=== PATIENT | male | born 1960 | race Caucasian/White ===

== ENCOUNTER 2024-12-03 08:38 | Outpatient (AMB) | payer OTHER, MEDICARE, SELFPAY ==
--- OUTSIDE RECORDS SUMMARY | 2024-12-03 08:42 | XMS_ITS | Clinical Summary ---
Author Organization [address] Address [address] [place] [phone] Phone Care Team Providers Care Regenerator Operator Name Role Phone Jazzmine Waters MD Primary Care Provider [phone] Allergies No known active allergies Medications triamcinolone (KENALOG) 0.1 % cream Apply BID 11/04/2023 Active lisinopriL (PRINIVIL,ZESTRI L) 20 mg tablet Take 1 tablet (20 mg total) by mouth 1 (one) time each day. 90 tablet 1 09/10/2024 Active Active Problems Problem Noted Date Diagnosed Date Ventral hernia without obstruction or gangrene 0 02/28/2023 Obesity (BMI 30-39.9) 08/13/2018 Positive hepatitis C antibody test 09/23/2017 Overview (05/25/2024): Negative viral load Erectile dysfunction 09/15/2017 History of cocaine abuse (CMS/HCC V24, CMS/HCC V 28) 09/15/2017 Hyperlipidemia 06/30/2015 Hypertension 09/16/2012 Encounters Date Type Department Care Team Description 11/16/2024 1:27 PM EDT - 11/16/2024 11:59 PM EDT Hospital Encounter Radiology Department - [address] [phone] Other spondylosis, lumbar region; Radiculopathy, lumbar region Discharge Disposition: Home or Self Care from Last 3 Months Immunizations Name Administration Dates Next Due Influenza Quadravalent, MDCK , 0.5ml, preservative free (Flucelvax) 6mo and older 08/05/2023 Tdap Tetanus diptheria acell ular pertussis (Boostrix; Adacel) 7yo and older 02/28/2023,07/14/2012 Surgical History Surgery Date Site/Laterality Comments COLONOSCOPY 12/22/12 PROCEDURE: HISTORICAL COLONOSCOPY; COMMENT: tics and hemorrhoids; repeat in ten yrs TONSILLECTOMY PROCEDURE: HISTORICAL TONSILLECTOMY Medical History Medical History Date Comments Hypertension DX:Hypertension Family History Medical History Relation Name Comments Other: suicide at age 42 Father Other: tia Sister htn, high dilan sterol Relation Name Status Comments Father Mother Alive Sister Alive Social History Tobacco Use Types Packs/Day Years Used Date Smoking Tobacco: Former Smokeless Tobacco: Never Tobacco Cessation:Counseling Given: Not Answered Alcohol Use Standard Drinks/Week Comments Not Asked 0 (1 standard drink = 0.6 oz pur e alcohol) Sex and Gender Information Value Date Recorded Sex Assigned at Not on file Legal Sex Male 12:56 AM EST Gender Identity Not on file Sexual Orientation Not on file Obstetrics History Last Filed Vital Signs Vital Sign Reading Time Taken Comments Blood Pressure 138/88 07/15/2024 4:04 PM EST Pulse 90 07/15/2024 4:04 PM EST Temperature 36.1 ??C (96.9 ??F) 07/15/2024 4:04 PM ES T Respiratory Rate 14 07/15/2024 4:04 PM EST Oxygen Saturation - - Inhaled Oxygen Concentration - - Weight 109 kg (241 lb) 07/15/2024 4:04 PM EST Height 172.7 cm (5' 8 ) 07/15/2024 4:04 PM EST Body Mass Index 36.64 07/15/2024 4:04 PM EST Plan of Treatment Upcoming Encounters Date Type Department Care Team (Late st Contact Info) Description 12/14/2024 9:30 AM EDT Office Visit Adult Medicine [address] [phone] Jazzmine Waters MD [address] [place] [address] Health Maintenance Due Date Last Done Comments Pneumococcal Vaccine: 50+ Years (1 of 1 - PCV) 12/07/2009 Zoster Vaccines (1 of 2) 12/07/2009 Depression Screening 09/24/2023 HIV Screening 09/24/2023 Social Influencers of Health Screening 09/24/2023 COVID-19 Vaccine ( season) 2024 08/04/2022, 07/30/2021, 12/10/2020, Additional history exists Hypertension/CHF/CAD Annual BMP Blood Test 07/28/2024 07/28/2023 Influenza Vaccine (Season Ended) 2025 08/05/2023 Cholesterol Screening (Lipid Panel) 06/15/2029 06/15/2024, 12/15/2023 DTaP,Tdap,and Td Vaccines (3 - Td or Tdap) 02/28/2033 02/28/2023, 07/14/2012 Colorectal Cancer Screening: Colonoscopy 12/21/2033 12/22/2023 RSV Immunization Adult Patients (1 - 1-dose 75+ series) 12/07/2034 Hepatitis C Screening Completed 09/24/2017 HIB Vaccines Aged Out No longer eligi ble based on patient's age to complete this topic HPV Vaccines Aged Out No longer eligi ble based on patient's age to complete this topic Hepatitis A Vaccines Aged Out No long er eligible based on patient's age to complete this topic Hepatitis B Vaccines Aged Out No long er eligible based on patient's age to complete this topic IPV Vaccines Aged Out No longer eligi ble based on patient's age to complete this topic MMR Vaccines Aged Out No longer eligi ble based on patient's age to complete this topic Meningococcal ACWY Vaccine Aged Out N o longer eligible based on patient's age to complete this topic Meningococcal B Vaccine Aged Out No l onger eligible based on patient's age to complete this topic Pneumococcal Vaccine: Pediatrics (0 to 5 Years) and At-Risk Patients (6 to 64 Years) Aged Out No longer eligible based on patient's age to complete this topic RSV Immunization Patients Under 20 months Aged Out No longer eligible based on patient's age to complete this topic Varicella Vaccines Aged Out No longer eligible based on patient's age to complete this topic Procedures Procedure Name Priority Date/Time Associated Diagnosis Comments MR LUMBAR SPINE WO CONTRAST Routine 11/16/2024 2:14 PM EDT Other spondylosis, lumbar region Radiculopathy, lumbar region COLONOSCOPY Routine 12/22/2023 LIPID PANEL Routine 12/15/2023 ANNUAL BMP BLOOD TEST Routine 07/28/2023 HEPATITIS C SCREENING Routine 09/24/2017 from Last 3 Months or Most Recently Relevant to Health Maintenance Results * MR Lumbar Spine wo Contrast (11/16/2024 2:14 PM EDT) Anatomical Region Laterality Modality L-spine, Spine Magnetic Resonan ce 11/16/2024 7:00 PM EDT Narrative 11/16/2024 7:13 PM EDT MRI of the lumbosacral spine without intravenous contrast. History low back pain. Examination was performed on 1.5 Gillian magnet. Labeling of the levels is according to the labeling on prior study from 02/26/2015 accounting for 4 nonribs bearing lumbar vertebra rudimentary S1-S2 disc . If surgical intervention is planned please pay close attention to the levels. Conus medullaris terminates at L1 level. Vertebral bodies are maintained in height. T12-L1 level is unremarkable. At L1-2 level there is mild bulging of the disc and mild hypertrophy of the facet joints. There is no spinal stenosis or nerve root compression. At L2-3 level there is diffuse bulging of the disc, hypertrophy of the facet joints. And some prominence of the posterior epidural fat contributing to mild spinal stenosis. There is clumping of the nerve roots. At L3-4 level disc is decreased in T2 signal. There is bulging of the discs, hypertrophy of the facet joints and prominence of the posterior epidural fat contributing to moderate/severe spinal stenosis. There is narrowing of the lateral recesses and L3 neural foramina. There is effacement of the L3 nerve roots. There is clumping of the nerve roots within the spinal canal. At L4 S1 level disc is decreased in height and T2 signal. There is diffuse bulging of the disc and bilateral lateral protrusion there is circumferential prominence of the epidural fat contributing to moderate/severe spinal stenosis. There is clumping of the nerve roots. There is stenosis of the lateral recesses and L4 nerve roots with compression of the L4 nerve roots more prominent on the left. Perivertebral soft tissues are unremarkable. When compared with previous examination, there is ??interval progression of the spinal stenosis at L3-4 and L4 S1 levels. Compression of the L4 nerve roots, left more than right. 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 Moderate to severe spinal stenosis at L3-4 level. Effacement of the L3 nerve roots. Moderate/severe spinal stenosis at L4 S1 level with compression of the L4 nerve roots, more prominent on the left. Clumping of the nerve roots within the spinal canal at multiple levels. Interval progression of the degenerative changes. -------- FINAL REPORT -------- Dictated By: Joi Galvan Dictated Date: 11/16/2024 19:00 ET Assigned Physician: Joi Galvan Reviewed and Electronically Signed By: Joi Galvan Signed Date: 11/16/2024 19:13 ET Workstation ID: [id number] Transcribed By: Self Edit Transcribed Date: 11/16/2024 19:00 ET Procedure Note Joi Galvan MD - 11/16/2024 MRI of the lumbosacral spine without intravenous contrast. History low back pain. Examination was performed on 1.5 Gillian magnet. Labeling of the levels isaccording to the labeling on prior study from 02/26/2015 accounting for 4nonribs bearing lumbar vertebra rudimentary S1-S2 disc . If surgicalintervention is planned please pay close attention to the levels. Conus medullaris terminates at L1 level. Vertebral bodies are maintainedin height. T12-L1 level is unremarkable. At L1-2 level there is mild bulging of thedisc and mild hypertrophy of the facet joints. There is no spinal stenosisor nerve root compression. At L2-3 level there is diffuse bulging of the disc, hypertrophy of thefacet joints. And some prominence of the posterior epidural fatcontributing to mild spinal stenosis. There is clumping of the nerveroots. At L3-4 level disc is decreased in T2 signal. There is bulging of thediscs, hypertrophy of the facet joints and prominence of the posteriorepidural fat contributing to moderate/severe spinal stenosis. There isnarrowing of the lateral recesses and L3 neural foramina. There iseffacement of the L3 nerve roots. There is clumping of the nerve rootswithin the spinal canal. At L4 S1 level disc is decreased in height and T2 signal. There is diffusebulging of the disc and bilateral lateral protrusion there iscircumferential prominence of the epidural fat contributing tomoderate/severe spinal stenosis. There is clumping of the nerve roots.There is stenosis of the lateral recesses and L4 nerve roots withcompression of the L4 nerve roots more prominent on the left. Perivertebral soft tissues are unremarkable. When compared with previous examination, there is interval progression ofthe spinal stenosis at L3-4 and L4 S1 levels. Compression of the L4 nerveroots, left more than right. CONCLUSIONS: Congenital variant of the lumbar spine with 4 nonrib bearinglumbar vertebra. Moderate to severe spinal stenosis at L3-4 level.Effacement of the L3 nerve roots. Moderate/severe spinal stenosis at L4 [id number] with compression of the L4 nerve roots, more prominent on theleft. Clumping of the nerve roots within the spinal canal at multiple levels.Interval progression of the degenerative changes. -------- FINAL REPORT -------- Dictated By: Joi Galvan Dictated Date: 11/16/2024 19:00 ET Assigned Physician: Joi Galvan Reviewed and Electronically Signed By: Joi Galvan Signed Date: 11/16/2024 19:13 ET Workstation ID: [id number] Transcribed By: Self Edit Transcribed Date: 11/16/2024 19:00 ET Orlin PRATT IMG MRI PROCEDURES Final Resul t * Colonoscopy (12/22/2023) Colonoscopy Normal, Abstracted Anatomical Region Laterality Modality Other Historical Provider HEALTH MAINTENANCE Final Result * (ABNORMAL) Lipid panel (12/15/2023) [facility] LDL/HDL Ratio 4 0 - 4 Triglycerides 84 0 - 150 mg/dL Cholesterol 227(A) 0 - 200 mg/dL HDL 64 >=40 mg/dL LDL Cholesterol 147(A) 0 - 100 mg/dL Blood Venous blood specimen / Unknown Historical Provider LAB BLOOD ORDERABLES Linda l Result * Annual BMP Blood Test (07/28/2023) [facility] Annual BMP Blood Test Abstracted [facility] Provider HEALTH MAINTENANCE Final Result * Hepatitis C Screening (09/24/2017) [facility] Hepatitis C Screening Abstracted [facility] Provider HEALTH MAINTENANCE Final Result from Last 3 Months or Most Recently Relevant to Health Maintenance Insurance [facility] Care Teams Regenerator Operator Relationship Specialty Start Date End Date Jazzmine Waters MD [address] [place] [address] PCP - General Internal Medicine 10/21/13
--- NOTE | 2024-12-03 09:05 | A.SPINEOV_ITS ---
Intake Visit Reasons: lower back pain and lumbar radiculitis Intake Note: Mr. Milan is here today c/o low back pain. MRI done @ [place] [place] (Brought disc). Pit Manager Required: No Allergies No Known Allergies Allergy (Unverified 05/11/20 14:42) Assessment & Plan Assessment & Plan (1) Lumbar stenosis: Code(s): M48.061 - Spinal stenosis, lumbar region without neurogenic claudication Category: Medical Plan Dear Orlin, Thank you for referring Mr Milan to our office today. This is a very nice 63-year-old gentleman who presents to the office today for evaluation of right sided leg pain and right-sided low back pain that he has had now for many years. It starts in the right side of his low back, radiates into his buttock, posterolateral thigh into his anterior lateral calf goes down to the top of his foot. He remembers when it originally started he was lifting a bucket of sheet rock mud and felt something pop. He ultimately underwent a series of conservative treatments and the pain became much more manageable. Over the years he has on and off had flare-ups but it has been manageable with things like physical therapy and cortisone injections. For whatever reason in the last year so, he has had a significant increase in the pain. He has actually had to stop working because of the physical nature of his job and having to go up on ladders he did not trust it. He has been so much of his day lying down. He also will have to lean to the left when he sitting to take the pressure off his back. He has been taking gabapentin at night to help with the pain and that seems to make things manageable, he will get 4-5 hours of sleep. He was taking [id number] medications like Tylenol and ibuprofen. He had to stop the ibuprofen because it was giving him significant gastritis. He comes in today with an MRI showing stenosis of the lumbar spine. PMH: He is very healthy gentleman, has history of hypertension, had subcutaneous cyst removed from his back but other than that no history of coronary disease, strokes, liver disease, kidney disease, blood clots, bleeding disorders, cancer, major abdominal surgery etc.. Social hx: Quit smoking many years ago, occasionally has a beer or marijuana. Medications: Lisinopril, gabapentin Allergies: None Physical exam: Awake alert oriented no acute distress, he is uncomfortable standing up walks with an antalgic gait, he has a 4-5 weakness of his right tibialis, no sensory or reflex changes. Imaging review: Lumbar MRI done at [place] in October of 2024 shows he has transitional anatomy. The 1st fully formed disc from the bottom looks like L5- S1 to me consistent with the vasculature seen just anterior to it. There is some degeneration at this disc and some left L5 foraminal stenosis. At the L4-5 level just above that the disc height is normal, but there is moderate to severe stenosis in the central canal at this level. There is some epidural lipomatosis further down in the spinal canal at the S1-S2 level. Impression: 63-year-old male presents for evaluation of a right-sided buttock pain going down into his posterolateral thigh, outer calf into the top of his foot consistent with a right L5 radiculopathy. He has responded in the past 2 injections but these have started to wear off. The pain at this point is with him all day, it is aggravated with standing walking and gets better when he lays down. He has been taking gabapentin at night to help sleep. He was on anti-i nflammatories for a long time but it caused him significant gastritis. The pain has escalated over the last year it has gotten to the point now where he has had to stop working. He does a very physical job working with [employer]. Her this point he is not sure what to do as he feels as though he has exhausted all of his nonsurgical treatments. He has done PT in the past as well with no meaning ful improvement. His MRI done at [place] shows that he has what looks like moderate to severe stenosis at L4-5 (transitional anatomy). I think this would be consistent with his symptoms and the weakness in his foot. I am going to talk with Dr. Patel but I think he would be a good candidate for right L4-5 decompression. I did briefly review the procedure, risks, benefits with the patient and his as well as recovery etc.. Once I have a final plan from Dr. Patel I will get back to the patient. Thank you for allowing us to care for your patient. The total time spent with this visit with this patient was 45 minutes reviewing history, physical exam, lumbar imaging review, and implementation of treatment plan or further diagnostic testing Norbert Patel MD,PhD [facility] Coding Level of Care Code New Pt Level 4 (34110) Diagnoses Lumbar stenosis M48.061
== END 2024-12-03 09:30 | disposition home or self-care (01) ==
PROVIDERS: PCP Internal Medicine; Referring Provider Physical Medicine & Rehabilitation; Visit Provider Physician Assistant
DX: M48.061 Spinal stenosis, lumbar region without neurogenic claudication (principal)
CPT/HCPCS: 99204

== ENCOUNTER → 2025-01-06 12:45 | Outpatient (BNV) | payer OTHER, MEDICARE, SELFPAY | PROVIDERS: PCP Internal Medicine; Visit Provider Internal Medicine Cardiovascular Disease | DX: Z01.810 Encounter for preprocedural cardiovascular examination (principal) | CPT/HCPCS: 93010 ==

== ENCOUNTER → 2025-01-20 07:49 | Day surgery (SDC) | payer OTHER, MEDICARE, SELFPAY ==
--- OUTSIDE RECORDS SUMMARY | 2024-12-27 15:04 | XMS_ITS | Clinical Summary ---
Author Organization [address] Address [address] [place] [phone] Phone Care Team Providers Care Windows Vmware Administrator Name Role Phone Jazzmine Waters MD Primary Care Provider [phone] Allergies No known active allergies Medications triamcinolone [...] PM EDT Hospital Encounter Radiology Department - [address] [phone] Other spondylosis, lumbar region; Radiculopathy, lumbar region [...] Care Team (Late st Contact Info) Description 02/16/2025 9:30 AM EDT Office Visit Adult Medicine [address] [phone] Jazzmine Waters MD [address] [place] [address] Health Maintenance Due Date Last Done Comments Pneumococcal Vaccine: 50+ Years (1 of 1 - PCV) 12/07/2009 Zoster Vaccines (1 of 2) 12/07/2009 Abdominal Aortic Aneurysm (AAA) Screen 09/24/2023 Depression Screening 09/24/2023 Medicare Annual Wellness Visit 09/24/2023 Social Influencers of Health Screening 09/24/2023 COVID-19 Vaccine ( season) 2024 08/04/2022, 07/30/2021, 12/10/2020, Additional history exists Hypertension/CHF/CAD Annual BMP Blood Test 07/28/2024 07/28/2023 Falls Risk Assessment 12/07/2024 Influenza Vaccine (Season Ended) 2025 08/05/2023 Cholesterol [...] Signed Date: 11/16/2024 19:13 ET Workstation ID: [id number] Transcribed By: Self Edit Transcribed Date: 11/16/2024 [...] nerve roots. Moderate/severe spinal stenosis at L4 [id number] with compression of the L4 nerve roots, more prominent on theleft. Clumping of the nerve roots within the spinal canal at multiple levels.Interval progression of the degenerative changes. -------- FINAL REPORT -------- Dictated By: Joi Galvan Dictated Date: 11/16/2024 19:00 ET Assigned Physician: Joi Galvan Reviewed and Electronically Signed By: Joi Galvan Signed Date: 11/16/2024 19:13 ET Workstation ID: [id number] Transcribed By: Self Edit Transcribed Date: 11/16/2024 19:00 ET Orlin PRATT IMJasmin MRI PROCEDURES Final Resul t * Colonoscopy (12/22/2023) Colonoscopy Normal, Abstracted Anatomical Region Laterality Modality Other Historical Provider HEALTH MAINTENANCE Final Result * (ABNORMAL) Lipid panel (12/15/2023) Pathologist [facility] LDL/HDL Ratio 4 0 - 4 Triglycerides 84 0 - 150 mg/dL Cholesterol 227(A) 0 - 200 mg/dL HDL 64 >=40 mg/dL LDL Cholesterol 147(A) 0 - 100 mg/dL Blood Venous blood specimen / Unknown Result [facility] Provider LAB BLOOD ORDERABLES Linda l Result * Annual BMP Blood Test (07/28/2023) Pathologist [facility] Annual BMP Blood Test Abstracted Result [facility] Provider HEALTH MAINTENANCE Final Result * Hepatitis C Screening (09/24/2017) Pathologist [facility] Hepatitis C Screening Abstracted [facility] Provider HEALTH MAINTENANCE Final Result from Last 3 Months or Most Recently Relevant to Health Maintenance Insurance [facility] [employer] Care Teams Windows Vmware Administrator Relationship Specialty Start Date End Date Jazzmine Waters MD [address] [place] [address] PCP - General Internal Medicine 10/21/13
--- NOTE | 2025-01-06 | ECG_ITS ---
Test Reason : PREOP Blood Pressure : */* mmHG Vent. Rate : 79 BPM Atrial Rate : 79 BPM P-R Int : 166 ms QRS Dur : 98 ms QT Int : 362 ms P-R-T Axes : 42 -12 32 degrees QTcB Int : 415 ms Sinus rhythm with marked sinus arrhythmia Otherwise normal ECG When compared with ECG of 24-Feb-2003 08:31, No significant change was found Referred By: Alona Almanza Electronically Signed By: MARINO BLAKE MD
[2025-01-06 12:00] VITALS: BP 203/100; PULSE 80; RESP 16; O2SAT 95; BMI 40.1
--- NOTE | 2025-01-06 12:19 | HO.ANESPROP2 ---
HPI - Anesthesia Eval Consult details Narrative: Cx'd DOS d/t +Utox 64yo M for L4- 5 Decompression and Synovial Cyst Removal, 01/20/25 BP 200/100 at PAT: Denies symptoms, declines ER. Will require optimize with PCP. Instructed patient to monitor pressure at home and bring log to PCP eval. [place] [facility] [place] [facility] ER - added lasix and hctz. F/U with PCP added amlodipine (BP 160/88 at that visit). Telephone eval with BLAIR Taylor on 01/19/25, pt reports tracking BP's for last nine days with SBP <140. Instructed to bring log DOS. No recent illness No CP/SOB with minimal activity r/t pain Asthma: Years since symptoms Cocaine hx: been a while . Reviewed preop utox PMFSH Active Problems Active Problems: All Active Problems Lumbar stenosis (Acute) Past Medical History Medical History (Updated 01/06/25 @ 11:59 by Elisha Diggs RN) Habitual snoring Asthma History of cocaine abuse Hyperlipidemia Erectile dysfunction Positive hepatitis C antibody test Obesity Ventral hernia without obstruction or gangrene Back pain Marijuana use HTN (hypertension) Family History Family history of problems with anesthesia: No Surgical History Surgical History (Updated 01/06/25 @ 11:59 by Elisha Diggs RN) H/O colonoscopy Hx of tonsillectomy Hx of removal of cyst History of Problems with Anesthesia: No Social History Social History Are you a primary career resource technician to a significant other at home: No Do you presently have visiting nurse or other home services: No Patient Tobacco Use Status: Former Tobacco user Use of substances other than those prescribed or required for medical reasons: Yes Substance Use Frequency: Occasionally Have you been hit, kicked, punched, or otherwise hurt by someone within the past year? If so, by whom?: No Are you DNR?: No Advance Directives: No Advance Directives Information Provided: Yes Advance Directives on File: No Poor oral hygiene: Yes Meds Allergies Allergy/AdvReac Type Severity Reaction Status Date / Time No Known Allergies Allergy Unverified 05/11/20 14:42 Home Medications ?Medication ?Instructions ?Recorded ?Confirmed ?Last Taken ?Type lisinopril 20 mg tablet 20 mg PO DAILY 01/05/25 01/20/25 Unknown History hydrochlorothiazide 25 mg tablet 25 mg PO DAILY 01/07/25 01/20/25 Unknown History amlodipine 2.5 mg tablet 2.5 mg PO DAILY 01/19/25 01/20/25 01/20/25 History Exam Height,Weight and Vital Signs: Height 5 ft 7 in Weight 116.12 kg Last Vital Signs Pulse 80 01/06/25 12:00 Resp 16 01/06/25 12:00 BP 203/100 H 01/06/25 12:00 Pulse Ox 95 01/06/25 12:00 O2 Del Method Room Air 01/06/25 12:00 Pertinent Lab Results Pertinent Lab Results: Lab Results 01/06/25 Range/Units 12:52 WBC 7.7 (4.8-10.8) X10*3/uL RBC 4.93 (4.60-5.80) X10*6/uL Hgb 15.5 (14.0-18.0) g/dl Hct 45.4 (42.0-52.0) % MCV 92.1 (80.0-98.0) fL MCH 31.4 (27.0-33.0) pg MCHC 34.1 (31.0-36.0) g/dl RDW 13.1 (11.0-16.0) % Plt Count 262 (160-400) X10*3/uL MPV 9.8 (9.4-12.4) fL Absolute Nucleated RBC 0.000 (0.0-0.012) X10*3/uL Nucleated RBC % (auto) 0.0 (0.0-0.2) /100WBC Sodium 142 (135-145) mmol/L Potassium 4.8 (3.3-5.1) mmol/L Chloride 107 (96-108) mmol/L Carbon Dioxide 26 (22-29) mmol/L Anion Gap 14 (12-20) BUN 21 H (9-16) mg/dL Creatinine 1.02 (0.5-1.4) mg/dL Estim Creat Clear Calc 87.9 Estimated GFR > 60 Random Glucose 88 (60-115) mg/dL Calcium 9.3 (8.4-10.2) mg/dL Narrative Narrative: EKG 12/2024 Vent. Rate : 79 BPM Atrial Rate : 79 BPM P-R Int : 166 ms QRS Dur : 98 ms QT Int : 362 ms P-R-T Axes : 42 -12 32 degrees QTcB Int : 415 ms Sinus rhythm with marked sinus arrhythmia Otherwise normal ECG When compared with ECG of 24-Feb-2003 08:31, No significant change was found Airway Mallampati Class: II TM Dist: >3cm Neck ROM: Full Loose/Missing/Broken Teeth: Yes (broken side molars, #8&9 implants) Heart: ? irreg vs PVCs - EKG ordered Lungs: CTAB Assessment and Plan Assessment Anesthesia Assessment: Anesthesia Plan Discussed and PAT Visit Final Anesthetic Review Family History of Problems with Anesthesia: No History of Problems with Anesthesia: No
[2025-01-06 14:13] LABS: Hematocrit 45.4 % (42.0-52.0); Hemoglobin 15.5 g/dl (14.0-18.0); Mean Corpuscular HGB Conc 34.1 g/dl (31.0-36.0); Mean Corpuscular Hemoglobin 31.4 pg (27.0-33.0); Mean Corpuscular Volume 92.1 fL (80.0-98.0); Mean Platelet Volume 9.8 fL (9.4-12.4); Platelet Count 262 X10*3/uL (160-400); Red Blood Count 4.93 X10*6/uL (4.60-5.80); Red Cell Distribution Width 13.1 % (11.0-16.0); White Blood Count 7.7 X10*3/uL (4.8-10.8)
[2025-01-06 14:34] LABS: Anion Gap 14 (12-20); Blood Urea Nitrogen 21 mg/dL (9-16); Calcium 9.3 mg/dL (8.4-10.2); Carbon Dioxide 26 mmol/L (22-29); Chloride 107 mmol/L (96-108); Creatinine Clr Calc Pharmacy 87.9; Estimated Glomerular Filt Rate > 60; Glucose Random 88 mg/dL (60-115); Potassium 4.8 mmol/L (3.3-5.1); Sodium 142 mmol/L (135-145)
[2025-01-20 08:32] VITALS: BP 170/76; PULSE 88; RESP 14; TEMP 36.8; O2SAT 96
[2025-01-20] MEDS: Lactated Ringers 1,000 ML 100 ML IVCONT (08:49)
[2025-01-20] MEDS: methocarbamoL 750 MG TABLET PO (08:49)
[2025-01-20] MEDS: Gabapentin 300 MG CAPSULE PO (08:49)
[2025-01-20 08:52] LABS: Amphetamine Screen Urine Not Detected (Not Detect); Barbiturates, Urine Not Detected (Not Detect); Benzodiazepines Screen Urine Not Detected (Not Detect); Buprenorphine Scr Not Detected (Not Detect); Cannabinoid Screen Urine Not Detected (Not Detect); Cocaine Screen Urine POSITIVE (Not Detect); Fentanyl, urine Not Detected (Not Detect); Methadone Screen, Urine Not Detected (Not Detect); Opiate Screen Urine Not Detected (Not Detect); Oxycodone Screen Urine Not Detected (Not Detect); Phencyclidine Screen Urine Not Detected (Not Detect)
--- NOTE | 2025-01-20 08:54 | P.HPSUR_ITS ---
Pre-Procedural Eval Section A - 24 Hr Update-Section A only Date of Service: 01/20/25 The patient is an INPATIENT: No Changes since office visit: No Cold of Flu in the past 2 weeks, No New Medical Problems, No Changes in Medication and No Patient answered all questions The patient has been examined within 24 hours of the surgical procedure. The History & Physical has been completed within 30 days and I have reviewed it.: No Section B - Complete if H&P > 30 days Chief Complaint: Spinal stenosis, lumbar region without neurogenic Allergies: Allergies Allergy/AdvReac Type Severity Reaction Status Date / Time No Known Allergies Allergy Unverified 05/11/20 14:42 Review of Systems Sugical H&P ROS: Negative: Constitution, Cardiovascular, Respiratory, Neurological, Psychiatric, Hem-Onc, Allergic/Immunologic, Gastrointestinal, Genitourinary, Musculoskeletal, Integumentary, Endocrine and Eyes/Ears/Nose/Th roat Exam Surgical H&P Exam: Normal: HEENT, Normal: Heart, Normal: Lungs, Normal: Extremities, Normal: Abdomen, Normal: Skin and Normal: Neurological (Awake alert oriented x3) Plan Diagnosis/Plan: Unchanged Right L4-5 decompression Time Spent With Patient Time: Total time managing care of this patient today __4__ minutes.
--- NOTE | 2025-01-20 09:34 | PC.NURSE ---
patient urine toxicology positive for cocaine. Dr. Mariee and Dr. aPtel aware. Dr. Mariee at bedside. Patient procedure cancelled for today per MD. IV removed and intact. patient ride home called. patient ambulated to discharge waiting room.
== END ==
LOC: HO.SSS 07:50
PROVIDERS: Nurse Practitioner; PCP Internal Medicine; Visit Provider Neurological Surgery
DX: M48.061 Spinal stenosis, lumbar region without neurogenic claudication (principal); Z53.09 Procedure and treatment not carried out because of other contraindication; R82.5 Elevated urine levels of drugs, medicaments and biological substances
CPT/HCPCS: 36415; 80048; 80307; 85027; 93005; J0131; J0690

== ENCOUNTER 2025-02-23 06:44 | Day surgery (SDC) | payer OTHER, MEDICARE, SELFPAY ==
--- OUTSIDE RECORDS SUMMARY | 2025-01-26 15:40 | XMS_ITS | Clinical Summary ---
Author Organization [facility] [address] [facility] Address [address] [place] [address] Phone Care Team Providers Care Hearing Aid Dispenser Name Role Phone Jazzmine Waters MD Primary Care Provider [phone] Allergies No known active allergies Medications triamcinolone (KENALOG) 0.1 % cream Apply BID 11/04/2023 Active lisinopriL (PRINIVIL,ZESTRI L) 20 mg tablet Take 1 tablet (20 mg total) by mouth 1 (one) time each day. 90 tablet 1 09/10/2024 Active hydroCHLOROthiaz keenan (HYDRODIURIL) 25 mg tablet Take 1 tablet (25 mg total) by mouth 1 (one) time each day. 30 each 01/06/2025 5 Active furosemide (LASIX) 20 mg tablet Take 1 tablet (20 mg total) by mouth 2 (two) times a day for 3 days. 6 each 01/06/2025 Active amLODIPine (NORVASC) 2.5 mg tablet Take 1 tablet (2.5 mg total) by mouth 1 (one) time each day. 30 each 5 01/11/2025 5 Active Active Problems Problem Noted Date Diagnosed Date Ventral hernia without obstruction or gangrene 0 02/28/2023 Obesity (BMI 30-39.9) 08/13/2018 Positive hepatitis C antibody test 09/23/2017 Overview (05/25/2024): Negative viral load Erectile dysfunction 09/15/2017 History of cocaine abuse ([facility] V24, [facility] V 28) 09/15/2017 Hyperlipidemia 06/30/2015 Hypertension 09/16/2012 Encounters Date Type Department Care Team Description 01/11/2025 10:00 AM EDT Office Visit Adult [address] [phone] Jazzmine Waters MD Primary hypertension (Primary Dx) 01/07/2025 Telephone Adult [address] [phone] Deanne Max MA Hospital Follow-up 01/06/2025 5:14 PM EDT - 01/06/2025 8:16 PM EDT Emergency [facility] Emergency [address] [place] [address] Dionicio Casey MD Asymptomatic hypertension (Primary Dx) Discharge Disposition: Home or Self Care 01/06/2025 Telephone Adult [address] [phone] Jazzmine Waters MD Hypertension 11/16/2024 1:27 PM EDT - 11/16/2024 11:59 PM EDT Hospital Encounter Radiology Department - [address] [phone] Other spondylosis, lumbar region; Radiculopathy, lumbar region [...] Sign Reading Time Taken Comments Blood Pressure 160/88 01/11/2025 10:11 AM EDT Pulse 68 01/11/2025 10:11 AM EDT Temperature 36.4 ??C (97.5 ??F) 01/11/2025 10:11 AM E DT Respiratory Rate 20 01/11/2025 10:11 AM EDT Oxygen Saturation 96% 01/11/2025 10:11 AM EDT Inhaled Oxygen Concentration - - Weight 112 kg (247 lb) 01/11/2025 10:11 AM EDT Height 170.2 cm (5' 7 ) 01/11/2025 10:11 AM EDT Body Mass Index 38.69 01/11/2025 10:11 AM EDT Plan of Treatment Upcoming Encounters Date Type Department Care Team (Late st Contact Info) Description 02/28/2025 11:30 AM EDT Office Visit Adult Medicine [address] [phone] Jazzmine Waters MD [address] [place] [phone] Health Maintenance Due Date Last Done Comments Pneumococcal Vaccine: 50+ Years (1 of 1 - PCV) 12/07/2009 Zoster Vaccines (1 of 2) 12/07/2009 Abdominal Aortic Aneurysm (AAA) Screen 09/24/2023 Depression Screening 09/24/2023 Medicare Annual Wellness Visit 09/24/2023 Social Influencers of Health Screening 09/24/2023 COVID-19 Vaccine ( season) 2024 08/04/2022, 07/30/2021, 12/10/2020, Additional history exists Falls Risk Assessment 12/07/2024 Influenza Vaccine (Season Ended) 2025 08/05/2023 Hypertension/CHF/CAD Annual BMP Blood Test 01/06/2026 01/06/2025, 07/28/2023 Cholesterol Screening (Lipid Panel) 06/15/2029 06/15/2024, 12/15/2023 [...] Procedure Name Priority Date/Time Associated Diagnosis Comments ECG ANNOTATED 01/07/2025 XR CHEST 2 VIEWS STAT 01/06/2025 7:15 PM EDT TROPONIN I HIGH SENSITIVITY STAT 01/06/2025 6:46 PM EDT B-TYPE NATRIURETIC PEPTIDE STAT 01/06/2025 6:46 PM EDT CBC WITH AUTO DIFFERENTIAL STAT 01/06/2025 4:31 PM EDT COMPREHENSIVE METABOLIC PANEL STAT 01/06/2025 4:31 PM EDT CBC AND DIFFERENTIAL STAT 01/06/2025 4:31 PM EDT ECG 12-LEAD STAT 01/06/2025 4:27 PM EDT MR LUMBAR SPINE WO CONTRAST Routine 11/16/2024 2:14 PM EDT Other spondylosis, lumbar region Radiculopathy, lumbar region COLONOSCOPY Routine 12/22/2023 LIPID PANEL Routine 12/15/2023 HEPATITIS C SCREENING Routine 09/24/2017 from Last 3 Months or Most Recently Relevant to Health Maintenance Results * ECG-Annotated (01/07/2025) us Provider Onbase MD ECG ORDERABLES Final Result * XR Chest 2 Views (01/06/2025 7:15 PM EDT) Anatomical Region Laterality Modality Body Radiographic Blanca ging 01/07/2025 9:34 AM EDT Impressions 01/07/2025 9:35 AM EDT No acute findings. -------- FINAL REPORT -------- Dictated By: Juve Cadet Dictated Date: 01/07/2025 09:34 ET Assigned Physician: Juve Cadet Reviewed and Electronically Signed By: Juve Cadet Signed Date: 01/07/2025 09:35 ET Workstation ID: [id number] Transcribed By: Self Edit Transcribed Date: 01/07/2025 09:34 ET Narrative 01/07/2025 9:35 AM EDT PROCEDURE: PA and lateral radiographs of the chest. HISTORY: SOB, pulmonary edema suspected. COMPARISON: None. FINDINGS: Large right anterior diaphragmatic eventration. ??Mild right basilar atelectasis. ??Lungs otherwise clear. ??Pleural spaces and pulmonary vasculature are normal. ??Degenerative changes of the spine. ??Healed right lateral rib fractures. Procedure Note Juve Cadet MD - 01/07/2025 PROCEDURE: PA and lateral radiographs of the chest. HISTORY: SOB, pulmonary edema suspected. COMPARISON: None. FINDINGS: Large right anterior diaphragmatic eventration. Mild right basilaratelectasis. Lungs otherwise clear. Pleural spaces and pulmonaryvasculature are normal. Degenerative changes of the spine. Healed rightlateral rib fractures. IMPRESSION: No acute findings. -------- FINAL REPORT -------- Dictated By: Juve Cadet Dictated Date: 01/07/2025 09:34 ET Assigned Physician: Juve Cadet Reviewed and Electronically Signed By: Juve Cadet Signed Date: 01/07/2025 09:35 ET Workstation ID: [id number] Transcribed By: Self Edit Transcribed Date: 01/07/2025 09:34 ET Dionicio Casey MD IMG XR PROCEDURES Final Result * Troponin I high sensitivity (01/06/2025 6:46 PM EDT) High Sensitivity Troponin I 10 <=79 ng/L LAB CHEMISTRY METHOD 01/06/2025 7:48 PM EDT [facility] Blood Venous blood specimen / Unknown Venipuncture / Unknown 01/06/2025 6:46 PM EDT 01/06/2025 7:15 PM EDT Narrative [facility] - 01/06/2025 7:48 PM EDT High levels of biotin in samples may falsely decrease hsTroponin values. ??Use caution when interpreting hsTroponin results in patients taking biotin who exhibit renal impairment (eGFR <60) or in patients taking more than 20 mg/day of biotin. Dionicio Casey MD LAB BLOOD ORDERABLES Final Resu lt [facility] [address] [place] [address], [place] [phone] * B-type natriuretic peptide (01/06/2025 6:46 PM EDT) [facility] BNP 68 <=100 pcg/mL LAB CHEMISTRY METHOD 01/06/2025 7:55 PM EDT [facility] Blood Venous blood specimen / Unknown Venipuncture / Unknown 01/06/2025 6:46 PM EDT 01/06/2025 7:15 PM EDT [facility] Obed Casey MD LAB BLOOD ORDERABLES Final Resu lt [facility] [address] [place] [address], [place] [phone] * (ABNORMAL) CBC auto differential (01/06/2025 4:31 PM EDT) [facility] WBC 8.5 4.8 - 10.8 K/mcL LAB HEMETOLOGY METHOD 01/06/2025 4:59 PM EDT [facility] RBC 4.80 4.50 - 5.50 M/mcL LAB HEMETOLOGY METHOD 01/06/2025 4:59 PM EDT [facility] Hemoglobin 15.3 13.5 - 17.5 g/dL LAB HEMETOLOGY METHOD 01/06/2025 4:59 PM EDT [facility] Hematocrit 44.2 42.0 - 54.0 % LAB HEMETOLOGY METHOD 01/06/2025 4:59 PM EDT [facility] MCV 91.9 79.0 - 98.0 FL LAB HEMETOLOGY METHOD 01/06/2025 4:59 PM EDT [facility] MCH 31.8 27.0 - 32.0 pcg LAB HEMETOLOGY METHOD 01/06/2025 4:59 PM EDT [facility] MCHC 34.6 32.0 - 37.0 g/dL LAB HEMETOLOGY METHOD 01/06/2025 4:[address] [facility] RDW 13.0 11.0 - 15.0 % LAB HEMETOLOGY METHOD 01/06/2025 4:[address] [facility] Platelets 254 130 - 400 K/mcL LAB HEMETOLOGY METHOD 01/06/2025 4:[address] [facility] MPV 9.5 7.0 - 11.0 FL LAB HEMETOLOGY METHOD 01/06/2025 4:[address] [facility] NRBC 0.0 <1.0 % LAB HEMETOLOGY METHOD 01/06/2025 4:[address] [facility] NRBC Absolute 0.00 <0.10 K/mcL LAB HEMETOLOGY METHOD 01/06/2025 4:[address] [facility] Neutrophils Relative 70.1 % LAB HEMETOLOGY METHOD 01/06/2025 4:[address] [facility] Lymphocytes Relative 18.9 % LAB HEMETOLOGY METHOD 01/06/2025 4:[address] [facility] Monocytes Relative 8.1 % LAB HEMETOLOGY METHOD 01/06/2025 4:[address] [facility] Eosinophils Relative 1.3 % LAB HEMETOLOGY METHOD 01/06/2025 4:[address] [facility] Basophils Relative 0.8 % LAB HEMETOLOGY METHOD 01/06/2025 4:[address] [facility] Immature Granulocytes Relative 0.8 % LAB HEMETOLOGY METHOD 01/06/2025 4:[address] [facility] Neutrophils Absolute 5.98 1.50 - 7.00 K/mcL LAB HEMETOLOGY METHOD 01/06/2025 4:[address] [facility] Lymphocytes Absolute 1.61 1.00 - 5.00 K/mcL LAB HEMETOLOGY METHOD 01/06/2025 4:59 PM EDT [facility] Monocytes Absolute 0.69 0.20 - 1.00 K/[facility] LAB HEMETOLOGY METHOD 01/06/2025 4:59 PM EDT [facility] Eosinophils Absolute 0.11 0.00 - 0.50 K/[facility] LAB HEMETOLOGY METHOD 01/06/2025 4:59 PM EDT [facility] Basophils Absolute 0.07 0.00 - 0.20 K/[facility] LAB HEMETOLOGY METHOD 01/06/2025 4:59 PM EDT [facility] Immature Granulocytes Absolute 0.07(H) 0.00 - 0.03 K/[facility] LAB HEMETOLOGY METHOD 01/06/2025 4:59 PM EDT [facility] Blood Venous blood specimen / Unknown Venipuncture / Unknown 01/06/2025 4:31 PM EDT 01/06/2025 4:51 PM EDT us Xavier Powell DO LAB BLOOD ORDERABLES Final Result [facility] [address] [place] [address], * Comprehensive metabolic panel (01/06/2025 4:31 PM EDT) Sodium 138 133 - 145 mmol/L LAB CHEMISTRY METHOD 01/06/2025 5:20 PM EDT [facility] Potassium 5.0 3.5 - 5.5 mmol/L LAB CHEMISTRY METHOD 01/06/2025 5:20 PM EDT [facility] Chloride 107 96 - 110 mmol/L LAB CHEMISTRY METHOD 01/06/2025 5:20 PM EDT [facility] CO2 27 21 - 32 mmol/L LAB CHEMISTRY METHOD 01/06/2025 5:20 PM EDT [facility] Anion Gap 4 3 - 11 LAB CHEMISTRY METHOD 01/06/2025 5:[address] [facility] Glucose 93 70 - 100 mg/dL LAB CHEMISTRY METHOD 01/06/2025 5:[address] [facility] BUN 19 5 - 25 mg/dL LAB CHEMISTRY METHOD 01/06/2025 5:[address] [facility] Creatinine 1.11 0.70 - 1.30 mg/dL LAB CHEMISTRY METHOD 01/06/2025 5:[address] [facility] eGFR 74 >=60 mL/min/1. 73m2 LAB CHEMISTRY METHOD 01/06/2025 5:[address] [facility] Comment:Calculation based on the Chronic Kidney Disease Epidemiology Collaboration (CKD-EPI) equation refit without adjustment for race. BUN/Creatinine Ratio 17.1 LAB CHEMISTRY METHOD 01/06/2025 5:[address] [facility] Calcium 9.5 8.5 - 10.5 mg/dL LAB CHEMISTRY METHOD 01/06/2025 5:[address] [facility] AST (SGOT) 14 10 - 42 unit/L LAB CHEMISTRY METHOD 01/06/2025 5:[address] [facility] ALT (SGPT) 23 10 - 60 unit/L LAB CHEMISTRY METHOD 01/06/2025 5:[address] [facility] Alkaline Phosphatase 92 42 - 121 unit/L LAB CHEMISTRY METHOD 01/06/2025 5:[address] [facility] Total Protein 7.3 6.0 - 8.0 g/dL LAB CHEMISTRY METHOD 01/06/2025 5:[address] [facility] Albumin 4.1 3.2 - 5.0 g/dL LAB CHEMISTRY METHOD 01/06/2025 5:[address] [facility] Total Bilirubin 0.6 0.0 - 1.4 mg/dL LAB CHEMISTRY METHOD 01/06/2025 5:20 PM EDT [facility] Blood Venous blood specimen / Unknown Venipuncture / Unknown 01/06/2025 4:31 PM EDT 01/06/2025 4:51 PM EDT Xavier Powell DO LAB BLOOD ORDERABLES Final Result Performing Organization Address [facility] Co de Phone Number [facility] [address] [place] [address], [place] [phone] * ECG 12 lead (01/06/2025 4:27 PM EDT) Ventricular Rate ECG 72 BPM GEMUSE Atrial Rate 72 BPM GEMUSE P-R Interval 158 ms GEMUSE QRS Duration 96 ms GEMUSE Q-T Interval 368 ms GEMUSE QTc 402 ms GEMUSE P Wave [place] 26 degrees GEMUSE R [place] -13 degrees GEMUSE T [place] 20 degrees GEMUSE ECG Interpretation Sinus rhythm with marked sinus arrhythmia Minimal voltage criteria for LVH, may be normal variant ( R in aVL ) Borderline ECG No previous ECGs available Confirmed by AXEL SERRATO ([id number]) on 01/06/2025 8:54:56 PM GEMUSE 01/06/2025 4:27 PM EDT 01/06/2025 8:54 PM EDT us Xavier Powell DO ECG ORDERABLES Final Resul t Performing Organization Address City/[facility] Co de Phone Number GEMUSE * MR Lumbar Spine wo Contrast (11/16/2024 [...] Signed Date: 11/16/2024 19:13 ET Workstation ID: [id number] Transcribed By: Self Edit Transcribed Date: 11/16/2024 [...] nerve roots. Moderate/severe spinal stenosis at L4 G3dahwa with compression of the L4 nerve roots, more prominent on theleft. Clumping of the nerve roots within the spinal canal at multiple levels.Interval progression of the degenerative changes. -------- FINAL REPORT -------- Dictated By: Joi Galvan Dictated Date: 11/16/2024 19:00 ET Assigned Physician: Joi Galvan Reviewed and Electronically Signed By: Joi Galvan Signed Date: 11/16/2024 19:13 ET Workstation ID: [id number] Transcribed By: Self Edit Transcribed Date: 11/16/2024 19:00 ET Orlin PRATT IMG MRI PROCEDURES Final Resul t * Colonoscopy (12/22/2023) [facility] Colonoscopy Normal, Abstracted Anatomical Region Laterality Modality Other Result [facility] Provider HEALTH MAINTENANCE Final Result * (ABNORMAL) Lipid panel (12/15/2023) [facility] LDL/HDL Ratio 4 0 - 4 Triglycerides 84 0 - 150 mg/dL Cholesterol 227(A) 0 - 200 mg/dL HDL 64 >=40 mg/dL LDL Cholesterol 147(A) 0 - 100 mg/dL Blood Venous blood specimen / Unknown Result [facility] Historical Provider LAB BLOOD ORDERABLES Linda l Result * Hepatitis C Screening (09/24/2017) [facility] Hepatitis C Screening Abstracted Result [facility] Provider HEALTH MAINTENANCE Final Result from Last 3 Months or Most Recently Relevant to Health Maintenance Insurance [facility] MEDICARE Care Teams Hearing Aid Dispenser Relationship Specialty Start Date End Date Jazzmine Waters MD [address] [place] [address] PCP - General Internal Medicine 10/21/13
[2025-02-16 12:38] VITALS: BMI 40.1
--- NOTE | 2025-02-22 08:19 | HO.ANESPROP2 ---
Documented by User: Alona Almanza NP 02/22/25 08:21 HPI - Anesthesia Eval Consult details Narrative: 64yo M for L4- 5 Decompression and Synovial Cyst Removal Previously cx'd DOS for +Utox BP 200/100 at PAT: Denies symptoms, declines ER. Will require optimize with PCP. Instructed patient to monitor pressure at home and bring log to PCP eval. After leaving [facility], pt went to [facility] ER - added lasix and hctz. F/U with PCP added amlodipine (BP 160/88 at that visit). Telephone eval with BLAIR Taylor on 01/19/25, pt reports tracking BP's for last nine days with SBP <140. Instructed to bring log DOS. No recent illness No CP/SOB with minimal activity r/t pain Asthma: Years since symptoms Cocaine hx: been a while . Reviewed preop utox PMFSH Active Problems Active Problems: All Active Problems Lumbar stenosis (Acute) Past Medical History Medical History Habitual snoring Asthma History of cocaine abuse Hyperlipidemia Erectile dysfunction Positive hepatitis C antibody test Obesity Ventral hernia without obstruction or gangrene Back pain Marijuana use HTN (hypertension) Family History Family history of problems with anesthesia: No Surgical History Surgical History H/O colonoscopy Hx of tonsillectomy Hx of removal of cyst History of Problems with Anesthesia: No Social History Social History Are you a primary rn patient care to a significant other at home: No Do you presently have visiting nurse or other home services: No Patient Tobacco Use Status: Former Tobacco user Tobacco use type: Cigarette Substance Use Type Other:: has abstained since surgery cancelled in December Have you been hit, kicked, punched, or otherwise hurt by someone within the past year? If so, by whom?: No Spiritual Healthcare Practices: no Taoist Healthcare Practices: no Cultural Healthcare Practices: no Are you DNR?: No Advance Directives: No (spouse is primary contact) Advance Directives Information Provided: Yes (as above noted) Advance Directives on File: No Poor oral hygiene: Yes (broken teeth in back, both sides & upper front implants) Meds Allergies Allergy/AdvReac Type Severity Reaction Status Date / Time No Known Allergies Allergy Unverified 05/11/20 14:42 Home Medications ?Medication ?Instructions ?Recorded ?Confirmed ?Last Taken ?Type lisinopril 20 mg tablet 20 mg PO DAILY 01/05/25 02/16/25 Unknown History hydrochlorothiazide 25 mg tablet 25 mg PO DAILY 01/07/25 02/16/25 Unknown History amlodipine 2.5 mg tablet 2.5 mg PO DAILY 01/19/25 02/16/25 02/23/25 History Exam Height,Weight and Vital Signs: Height 5 ft 7 in Weight 116.2 kg Pertinent Lab Results Pertinent Lab Results: Lab Results 01/06/25 Range/Units 12:52 WBC 7.7 (4.8-10.8) X10*3/uL RBC 4.93 (4.60-5.80) X10*6/uL Hgb 15.5 (14.0-18.0) g/dl Hct 45.4 (42.0-52.0) % MCV 92.1 (80.0-98.0) fL MCH 31.4 (27.0-33.0) pg MCHC 34.1 (31.0-36.0) g/dl RDW 13.1 (11.0-16.0) % Plt Count 262 (160-400) X10*3/uL MPV 9.8 (9.4-12.4) fL Absolute Nucleated RBC 0.000 (0.0-0.012) X10*3/uL Nucleated RBC % (auto) 0.0 (0.0-0.2) /100WBC Sodium 142 (135-145) mmol/L Potassium 4.8 (3.3-5.1) mmol/L Chloride 107 (96-108) mmol/L Carbon Dioxide 26 (22-29) mmol/L Anion Gap 14 (12-20) BUN 21 H (9-16) mg/dL Creatinine 1.02 (0.5-1.4) mg/dL Estim Creat Clear Calc 87.9 Estimated GFR > 60 Random Glucose 88 (60-115) mg/dL Calcium 9.3 (8.4-10.2) mg/dL Narrative Narrative: EKG 12/2024 Vent. Rate : 79 BPM Atrial Rate : 79 BPM P-R Int : 166 ms QRS Dur : 98 ms QT Int : 362 ms P-R-T Axes : 42 -12 32 degrees QTcB Int : 415 ms Sinus rhythm with marked sinus arrhythmia Otherwise normal ECG When compared with ECG of 24-Feb-2003 08:31, No significant change was found Airway Mallampati Class: II TM Dist: >3cm Neck ROM: Full Loose/Missing/Broken Teeth: Yes (broken side molars, #8&9 implants) Heart: ? irreg vs PVCs - EKG ordered Lungs: CTAB Assessment and Plan Assessment Anesthesia Assessment: Anesthesia Plan Discussed and PAT Visit Final Anesthetic Review Family History of Problems with Anesthesia: No History of Problems with Anesthesia: No Documented by User: Marilyn Drew MD 02/23/25 08:35 PMFSH Past Medical History Medical History Habitual snoring Asthma History of cocaine abuse Hyperlipidemia Erectile dysfunction Positive hepatitis C antibody test Obesity Ventral hernia without obstruction or gangrene Back pain Marijuana use HTN (hypertension) Surgical History Surgical History H/O colonoscopy Hx of tonsillectomy Hx of removal of cyst Social History Social History Are you a primary rn patient care to a significant other at home: No Do you presently have visiting nurse or other home services: No Patient Tobacco Use Status: Former Tobacco user Tobacco use type: Cigarette Substance Use Type Other:: has abstained since surgery cancelled in December Have you been hit, kicked, punched, or otherwise hurt by someone within the past year? If so, by whom?: No Spiritual Healthcare Practices: no Taoist Healthcare Practices: no Cultural Healthcare Practices: no Are you DNR?: No Advance Directives: No (spouse is primary contact) Advance Directives Information Provided: Yes (as above noted) Advance Directives on File: No Poor oral hygiene: Yes (broken teeth in back, both sides & upper front implants) Meds Allergies Allergy/AdvReac Type Severity Reaction Status Date / Time No Known Allergies Allergy Unverified 05/11/20 14:42 Home Medications ?Medication ?Instructions ?Recorded ?Confirmed ?Last Taken ?Type lisinopril 20 mg tablet 20 mg PO DAILY 01/05/25 02/16/25 Unknown History hydrochlorothiazide 25 mg tablet 25 mg PO DAILY 01/07/25 02/16/25 Unknown History amlodipine 2.5 mg tablet 2.5 mg PO DAILY 01/19/25 02/16/25 02/23/25 History Assessment and Plan Final Anesthetic Review NPO: Yes ASA Class: III Final Preanesthetic Review: Meds/Allgs Chart Reviewed, Consent Obtained/Reviewed and Anes Risks/Benef Reviewed Patient Risk: Intermediate Procedure Risk: Intermediate Anesthetic Plan Anesthetic Plan: GA Disposition: Standard PACU
--- NOTE | ~2025-02-23 | FL_ITS ---
EXAMINATION: FL GUIDANCE ONLY HISTORY: L4-5 DECOMPRESSION COMPARISON: None available. TECHNIQUE: Fluoroscopy time: 2.9 seconds. Cumulative Dose: 3.0027 mGy. DAP: 1.3061 mGym2 Images: 1. FINDINGS: A single fluoroscopic spot film of the lumbar spine in the lateral projection demonstrates a probe directed toward the L4-5 intervertebral disc space from a posterior approach. FL/FL guidance in OR IMPRESSION: Fluoroscopy during procedure. Please see procedure report for additional information. Electronically signed by: Aries Pettit MD 02/23/2025 11:04 AM EDT
--- NOTE | 2025-02-23 06:50 | MHC.SHP ---
Pre-Procedural Eval Section A - 24 Hr Update-Section A only Date of Service: 02/23/25 Section B - Complete if H&P > 30 days Chief Complaint: Spinal stenosis, lumbar region w/oneurogenic,cyst Allergies: Allergies Allergy/AdvReac Type Severity Reaction Status Date / Time No Known Allergies Allergy Unverified 05/11/20 14:42 Review of Systems Sugical H&P ROS: Negative: Constitution, Cardiovascular, Respiratory, Neurological, Psychiatric, Hem-Onc, Allergic/Immunologic, Gastrointestinal, Genitourinary, Musculoskeletal, Integumentary, Endocrine and Eyes/Ears/Nose/Throat Exam Surgical H&P Exam: Not Evaluated: HEENT, Not Evaluated: Heart, Not Evaluated: Lungs, Not Evaluated: Extremities, Not Evaluated: Abdomen, Not Evaluated: Skin and Not Evaluated: Neurological Exam Comment: The patient is awake, alert, no acute distress. Proposed surgical incision site is clean, dry, with no signs of recent trauma. Plan Diagnosis/Plan: Unchanged I have reviewed the history and physical and performed a pertinent physical examination on my patient. No changes have occurred unless specified. Plan remains the same, right L4-5 lumbar decompression Time Spent With Patient Time: Total time managing care of this patient today ___5_ minutes.
[2025-02-23 07:11] VITALS: BMI 39.3
[2025-02-23 07:32] LABS: Cannabinoid Screen Urine Not Detected (Not Detect)
[2025-02-23 07:35] VITALS: BP 166/83; PULSE 83; RESP 16; TEMP 36.8; O2SAT 97
--- NOTE | 2025-02-23 07:47 | ECG_ITS ---
Test Reason : AARHYTHMIA Blood Pressure : */* mmHG Vent. Rate : 73 BPM Atrial Rate : 73 BPM P-R Int : 188 ms QRS Dur : 102 ms QT Int : 376 ms P-R-T Axes : 32 -11 22 degrees QTcB Int : 414 ms Sinus rhythm with marked sinus arrhythmia Otherwise normal ECG When compared with ECG of 06-Jan-2025 12:45, No significant change was found Referred By: Mary Hicks Electronically Signed By: MARINO BLAKE MD
[2025-02-23] MEDS: Lactated Ringers 1,000 ML 100 ML IVCONT (08:00)
--- NOTE | 2025-02-23 10:39 | P.OP_ITS ---
Operative Note Operative Note Date of Service: 02/23/25 Narrative: Preoperative Diagnosis: L4-5 spinal stenosis/lateral recess stenosis/neural foraminal stenosis Operation: Right L4-5 Laminotomy, Partial facetectomy and foraminotomy with use of microscope Consent Informed Consent was obtained for this operation. I have explained the nature, purpose and benefits of the operation. I have discussed the risks and benefit of the operation including possible complications or adverse events with patient/family. Alternative(s) were discussed with the patient with their relative benefits and risks as well as the consequences of not accepting the operation were included in obtaining consent. Surgeon: ELIOT SKAGGS MD, PHD Procedure Assisted By: Rico Monroe Description of Procedure This 64-year-old male suffering from a right lumbar radiculopathy due to L4-5 lateral recess stenosis and possible synovial cyst. The patient was offered a decompression. The procedure complications were explained. The patient was consented. The patient was brought to the operating room and endotracheally intubated. The patient was turned in prone position on the Bj frame. Prep and drape was done followed by timeout. The Physician assistant women's tennis coach provided access. A mid lumbar incision was made followed by release of the paravertebral muscle on the right to expose the right L4-5 lamina and facet joints. An intraoperative x-ray was obtained to confirm the correct level. The microscope was brought in. I took over the procedure. The high-speed drill was used to do a right L4-5 laminotomy until flavum ligament was reached. A #2 Kerrison was used to expand the laminotomy near flush to the pedicles and to include a partial facetectomy. The flavum ligament was opened and resected with a #3 Kerrison to decompress the underlying thecal sac. The flavum ligament was removed to decompress the lateral recess and the exiting L5 nerve root. A long nerve hook could be easily passed along the medial side of the pedicles as a sign of adequate decompression. No synovial cyst was identified. The microscope was removed. Hemostasis was done. The physician assistant women's tennis coach close the Incision in 2 layers. Steri-Strips were used to approximate incision. An OpSite with Tegaderm was used to cover the incision. All sponge needle counts were correct. Patient was extubated and transported in stable is to recovery room. Anesthesia: General Estimated Blood Loss (ml): 20 Complications: None Duration of Surgery: Under 60 Minutes Postoperative Plan: Discharge to home
--- NOTE | 2025-02-23 10:47 | P.DS_ITS ---
DS: Providers Provider Date of Service: 02/23/25 Date of discharge: 02/23/25 Primary care physician: Jazzmine Waters MD DS: Summary Time Attestation Discharge Coordination Time (in mins): 11 Quality: Safe Use of Opioids Does Pt have an Active Cancer Diagnosis on the Problem List?: No Quality: Stroke Does the patient have a stroke diagnosis?: No Physical Exam Vital Signs: Vital Signs: Last Vital Signs Temp 98.2 F 02/23/25 07:35 Pulse 83 02/23/25 07:35 Resp 16 02/23/25 07:35 BP 166/83 H 02/23/25 07:35 Pulse Ox 97 02/23/25 07:35 O2 Del Method Room Air 02/23/25 07:35 BMI result Body Mass Index 39.3 DS: Data Data Completed and Pending Labs on day of discharge: Laboratory Results - last 24 hr 02/23/25 Unknown Urine Opiates Screen Not Detected Ur Buprenorphine Scrn Not Detected Ur Oxycodone Screen Not Detected Urine Methadone Screen Not Detected Urine Fentanyl Screen Not Detected Ur Barbiturates Screen Not Detected Ur Phencyclidine Scrn Not Detected Ur Amphetamines Screen Not Detected U Benzodiazepines Scrn Not Detected Urine Cocaine Screen Not Detected U Marijuana (THC) Screen Not Detected Discharge Plan Discharge Patient Disposition: Home, Self-Care Referrals: Jazzmine Waters MD [Primary Care Provider, Medical] - 1 Week Discharge Medications: New oxycodone 5 mg tablet 5 mg PO Q6H PRN (Reason: pain) Qty: 20 0RF Rx Instructions: Partial Fill upon patient request. Continued lisinopril 20 mg tablet 20 mg PO DAILY hydrochlorothiazide 25 mg Tablet 25 mg PO DAILY amlodipine 2.5 mg Tablet 2.5 mg PO DAILY Discharge Orders: Discharge Order (Routine); Ordered 02/23/25 Ordered By: Rico Saucedo Diet: Advance to usual diet Activity on Discharge: As tolerated Activity Restrictions/Additional Instructions: After your spinal surgery we ask you to observe the following restrictions/guidelines: Activity: It is normal to feel some discomfort as you increase your activity, but that will improve with time. We ask you avoid heavy lifting or acitivities that cause pain. As a general rule, 8lbs is a safe limit for lifting right after surgery. Walk as much as you feel comfortable but not to exhaustion. You will feel extra tired the first few days after surgery. Stay well hydrated. It is OK to walk up and down stairs You may return to driving when you are off narcotics (such as vicodin, oxycodone, dilaudid, etc), and you are back to normal functional capacity. If yo u have any concerns please check with office before driving. Return to work is specific to each patient and each surgery, so please speak with your doctor/PA at first follow up. Please bring paperwork such as FMLA at that time if you need it filled out. Medications: We recommend you take 1,000mg Tylenol every 8 hours for the first few weeks after surgery, if you do not have any liver issues and can tolerate this medication. Do not exceed 4,000mg daily. We will give you a short supply of narcotics after surgery (usually one weeks worth). If you need more please call the office but do not use more than prescribed. You will need to give our office 48 hours notice if you need narcotics refilled and we do not fill narcotics on weekends or evenings. If you are on a narcotic, it is a good idea to take a stool softener such as colace or senna to avoid constipation If you take blood thinner such as aspirin, Plavix, Coumadin, Effient, Eliquis etc for conditions such as Afib, DVT, Pulmonary embolus, coronary disease, stents etc please speak with your surgeon about specific details as to when you can resume these medications. You can resume NSAIDs on post op day 1 (eg: Motrin, Naproxen, etc). Follow up: Please call the office, , after surgery to arrange a 3 week follow up for wound check. Wound Care: You may remove your dressing on the first day after surgery. ?You may ?leave open to air. Please do not remove the steri strips underneath. they will fall off on their own in one week. IT IS NORMAL FOR THE WOUND TO OOZE OR BE BLOODY FOR A FEW DAYS AFTER SURGERY. ?IF THIS HAPPENS JUST PLACE NEW DRESSING OVER IT TO AVOID STAINING CLOTHES. You may shower on post op day # 1 We ask that you do not let the water soak the wound. If it does get wet, just towel dry lightly. Please do not scrub your incision or place any type of chemical/ointment on the wound. No tub baths, pools or jacuzzis for one month. If you have any leaking or redness from your wound, or fevers, please call the office. Print Language: Turkish
[2025-02-23 11:12] VITALS: BP 164/79; PULSE 84; RESP 12; TEMP 36.4; O2SAT 97
[2025-02-23 11:15] VITALS: BP 150/82; PULSE 84; RESP 14; O2SAT 97
[2025-02-23 11:20] VITALS: BP 152/74; PULSE 87; RESP 12; O2SAT 95
[2025-02-23 11:25] VITALS: BP 151/89; PULSE 83; RESP 16; O2SAT 95
[2025-02-23 11:37] VITALS: BP 145/88; PULSE 86; RESP 18; TEMP 36.1; O2SAT 94
== END 2025-02-23 12:22 | disposition home or self-care (01) ==
PROVIDERS: Nurse Practitioner; PCP Internal Medicine; Visit Provider Neurological Surgery
PROC: (CPT 63047; principal; 2025-02-23 09:30)
DX: M48.061 Spinal stenosis, lumbar region without neurogenic claudication (principal); M54.50 Low back pain, unspecified; M54.16 Radiculopathy, lumbar region; R26.89 Other abnormalities of gait and mobility; I10 Essential (primary) hypertension; E78.5 Hyperlipidemia, unspecified; Z79.899 Other long term (current) drug therapy; F14.11 Cocaine abuse, in remission; Z87.891 Personal history of nicotine dependence; Z98.890 Other specified postprocedural states
CPT/HCPCS: 63047; 80307; 93005; J0131; J0690; J1100; J1885; J2003; J2250; J2405; J2704; J3010

== ENCOUNTER → 2025-02-23 06:44 | Outpatient (BNV) | payer OTHER, MEDICARE, SELFPAY | PROVIDERS: PCP Internal Medicine; Visit Provider Neurological Surgery | DX: M48.062 Spinal stenosis, lumbar region with neurogenic claudication (principal) | CPT/HCPCS: 63047; 99499 ==

== ENCOUNTER → 2025-02-23 07:47 | Outpatient (BNV) | payer OTHER, MEDICARE, SELFPAY | PROVIDERS: PCP Internal Medicine; Visit Provider Internal Medicine Cardiovascular Disease | DX: I49.9 Cardiac arrhythmia, unspecified (principal) | CPT/HCPCS: 93010 ==

== ENCOUNTER 2025-03-14 09:38 | Outpatient (AMB) | payer OTHER, MEDICARE, SELFPAY ==
--- NOTE | 2025-03-14 09:42 | HO.SPINEOV ---
Intake Visit Reasons: 1st post op Intake Note: Mr. Milan is here today for his 1st post op. Medicaid Biller Required: No Allergies No Known Allergies Allergy (Verified 03/14/25 09:43) Assessment & Plan Assessment & Plan (1) Lumbar stenosis: Code(s): M48.061 - Spinal stenosis, lumbar region without neurogenic claudication Category: Medical Plan Mian comes in today for his 1st postop visit after having Right L4-5 Laminotomy, Partial facetectomy and foraminotomy completed by Dr. Patel on 02/23/25. To recap before surgery he was evaluated in clinic for right sided leg pain and right-sided low back pain. He reports that he has done very well since his surgery. He still has some occasional twinges of right-sided low back pain, but the rest of his preoperative complaints have resolved. He has been ambulating around his home and outside throughout the day without issue. He has been completing stairs without issue. He reports that he took about 5 of the oxycodone be prescribed directly after surgery, but hasn't needed it since the first few days after his operation. He did inquire about some EMG results that Dr. Waters from [place] [facility] wants us to send to him. I do not believe we ordered an EMG, but I will check his chart and if I can find the results I'll forward them over. No new neurological deficits. The patient ambulates well without any assistive devices. His posterior incision site is closed and well healing. No signs of erythema or drainage. I would like to follow up with Mian again in 6 weeks for a 2nd postoperative visit. Rico Patel MD,PhD [facility] Coding Level of Care Code Global (47020) Diagnoses Lumbar stenosis M48.061
--- OUTSIDE RECORDS SUMMARY | 2025-03-14 10:13 | XMS_ITS | Clinical Summary ---
Author Organization [facility] [address] [facility] Address [address] [place] [address] Phone Care Team Providers Care Supervisor [employer] Name Role Phone Jazzmine Waters MD Primary Care Provider [phone] Allergies No known active allergies Medications triamcinolone (KENALOG) 0.1 % cream Apply BID 4 Active furosemide (LASIX) 20 mg tablet Take 1 tablet (20 mg total) by mouth 2 (two) times a day for 3 days. 6 each 5 Active amLODIPine (NORVASC) 2.5 mg tablet Take 1 tablet (2.5 mg total) by mouth 1 (one) time each day. 30 each 5 5 025 Active hydroCHLOROthi azide (HYDRODIURIL) 25 mg tablet Take 1 tablet (25 mg total) by mouth 1 (one) time each day. 90 each 5 Active lisinopriL (PRINIVIL,ZEST RIL) 20 mg tablet TAKE 1 TABLET (20 MG TOTAL) BY MOUTH ONE TIME EACH DAY 90 tablet 1 5 Active lisinopriL (PRINIVIL,ZEST RIL) 20 mg tablet Take 1 tablet (20 mg total) by mouth 1 (one) time each day. 90 tablet 1 5 025 Discontinued hydroCHLOROthi azide (HYDRODIURIL) 25 mg tablet Take 1 tablet (25 mg total) by mouth 1 (one) time each day. 30 each 025 Discontinued(Re order) Active Problems Problem Noted Date Diagnosed Date Spinal stenosis at L4-L5 level 02/28/2025 Overview (02/28/2025): Status post right L4-5 laminotomy, by Dr. Souleymane Patel February 23, 2025 Ventral hernia without obstruction or gangrene 0 02/28/2023 Obesity (BMI 30-39.9) 08/13/2018 Positive hepatitis C antibody test 09/23/2017 Overview (05/25/2024): Negative viral load Erectile dysfunction 09/15/2017 History of cocaine abuse ([facility] V24, [facility] V 28) 09/15/2017 Hyperlipidemia 06/30/2015 Hypertension 09/16/2012 Encounters Date Type Department Care Team Description 02/28/2025 11:30 AM EDT Office Visit Adult [address] [phone] Jazzmine Waters MD Obesity (BMI 30-39.9) (Primary Dx); Other hyperlipidemia; Primary hypertension; Spinal stenosis at L4-L5 level; History of cocaine abuse ([facility] V24, [facility] V28); Skin cyst 01/11/2025 10:00 AM EDT Office Visit [address] [phone] Jazzmine Waters MD Primary hypertension (Primary Dx) 01/07/2025 Telephone Adult Medicine [address] [phone] Deanne Max [place] Hospital Follow-up 01/06/2025 5:14 PM EDT - 01/06/2025 8:16 PM EDT Emergency [facility] Emergency [address] [place] [phone] Dionicio Casey MD Asymptomatic hypertension (Primary Dx) Discharge Disposition: Home or Self Care 01/06/2025 Telephone Adult [address] [phone] Jazzmine Waters MD Hypertension from Last 3 Months Immunizations Name Administration [...] Sign Reading Time Taken Comments Blood Pressure 130/80 02/28/2025 11:15 AM EDT Pulse 76 02/28/2025 11:15 AM EDT Temperature 36.2 C (97.1 F) 02/28/2025 11:15 AM EDT Respiratory Rate 20 02/28/2025 11:15 AM EDT Oxygen Saturation 96% 01/11/2025 10:11 AM EDT Inhaled Oxygen Concentration - - Weight 115 kg (254 lb) 02/28/2025 11:15 AM EDT Height 170.2 cm (5' 7 ) 02/28/2025 11:15 AM EDT Body Mass Index 39.78 02/28/2025 11:15 AM EDT Plan of Treatment Upcoming Encounters Date Type Department Care Team (Late st Contact Info) Description 03/28/2025 3:45 PM EDT Office Visit Adult Medicine [facility] [address] [place], [place] [phone] Jazzmine Waters MD [address] [place] [address] Health Maintenance Due Date Last Done Comments Hepatitis A Vaccines (1 of 2 - Risk 2-dose series) 12/07/1978 Pneumococcal Vaccine: 50+ Years (1 of 1 - PCV) 12/07/2009 Zoster Vaccines (1 of 2) 12/07/2009 Abdominal Aortic Aneurysm (AAA) Screen 09/24/2023 Medicare Annual Wellness Visit 09/24/2023 Social Influencers of Health Screening 09/24/2023 COVID-19 Vaccine ( season) 2024 08/04/2022, 07/30/2021, 12/10/2020, Additional history exists Depression Screening 08/25/2024 Falls Risk Assessment 12/07/2024 Influenza Vaccine (#1) 2025 08/05/2023 Hypertension/CHF/CAD Annual BMP Blood Test [...] Procedure Name Priority Date/Time Associated Diagnosis Comments EXTERNAL XRAY REPORT 02/23/2025 EXTERNAL XRAY REPORT 02/23/2025 ECG ANNOTATED 01/07/2025 XR CHEST 2 VIEWS STAT 01/06/2025 7:15 PM EDT TROPONIN I HIGH SENSITIVITY STAT 01/06/2025 6:46 PM EDT B-TYPE NATRIURETIC PEPTIDE STAT 01/06/2025 6:46 PM EDT CBC WITH AUTO DIFFERENTIAL STAT 01/06/2025 4:31 PM EDT COMPREHENSIVE METABOLIC PANEL STAT 01/06/2025 4:31 PM EDT CBC AND DIFFERENTIAL STAT 01/06/2025 4:31 PM EDT ECG 12-LEAD STAT 01/06/2025 4:27 PM EDT COLONOSCOPY Routine 12/22/2023 LIPID PANEL Routine 12/15/2023 HEPATITIS C SCREENING Routine 09/24/2017 from Last 3 Months or Most Recently Relevant to Health Maintenance Results * External Xray Report (02/23/2025) Only the most recent of2 resultswithin the time period is included. Anatomical Region Laterality Modality Radiographic Blanca ging us Provider [facility] IMG XR PROCEDURES Final Result * ECG-Annotated (01/07/2025) us Provider Onbase MD [...] Signed Date: 01/07/2025 09:35 ET Workstation ID: [id number] Transcribed By: Self Edit Transcribed Date: 01/07/2025 09:34 ET Narrative 01/07/2025 9:35 AM EDT PROCEDURE: PA and lateral radiographs of the chest. HISTORY: SOB, pulmonary edema suspected. COMPARISON: None. FINDINGS: Large right anterior diaphragmatic eventration. Mild right basilar atelectasis. Lungs otherwise clear. Pleural spaces and pulmonary vasculature are normal. Degenerative changes of the spine. Healed right lateral rib fractures. Procedure Note Juve [...] Signed Date: 01/07/2025 09:35 ET Workstation ID: [id number] Transcribed By: Self Edit Transcribed Date: 01/07/2025 09:34 ET Dionicio Casey MD IMG XR PROCEDURES Final Result * Troponin I high sensitivity (01/06/2025 6:46 PM EDT) High Sensitivity Troponin I 10 <=79 ng/L LAB CHEMISTRY METHOD 01/06/2025 7:48 PM EDT [facility] Blood Venous blood specimen / Unknown Venipuncture / Unknown 01/06/2025 6:46 PM EDT 01/06/2025 7:15 PM EDT Narrative [facility] - 01/06/2025 7:48 PM EDT High levels of biotin in samples may falsely decrease hsTroponin values. Use caution when interpreting hsTroponin results in patients taking biotin who exhibit renal impairment (eGFR <60) or in patients taking more than 20 mg/day of biotin. Dionicio Casey MD LAB BLOOD ORDERABLES Final Resu lt [facility] [address] [place] [address], [place] [phone] * B-type natriuretic peptide (01/06/2025 6:46 PM EDT) BNP 68 <=100 pcg/mL LAB CHEMISTRY METHOD 01/06/2025 7:55 PM EDT [facility] Blood Venous blood specimen / Unknown Venipuncture / Unknown 01/06/2025 6:46 PM EDT 01/06/2025 7:15 PM EDT Dionicio Casey MD LAB BLOOD ORDERABLES Final Resu lt [facility] [address] [place] [address], [place] [phone] * (ABNORMAL) CBC auto differential (01/06/2025 4:31 PM EDT) WBC 8.5 4.8 - 10.8 [facility] LAB HEMETOLOGY METHOD 01/06/2025 4:59 PM EDT [facility] RBC 4.80 4.50 - 5.50 M/[facility] LAB HEMETOLOGY METHOD 01/06/2025 4:59 PM EDT [facility] Hemoglobin 15.3 13.5 - 17.5 g/dL LAB HEMETOLOGY METHOD 01/06/2025 4:59 PM EDT [facility] Hematocrit 44.2 42.0 - 54.0 % LAB HEMETOLOGY METHOD 01/06/2025 4:59 PM EDT [facility] MCV 91.9 79.0 - 98.0 FL LAB HEMETOLOGY METHOD 01/06/2025 4:59 PM EDT [facility] MCH 31.8 27.0 - 32.0 pcg LAB HEMETOLOGY METHOD 01/06/2025 4:59 PM EDT [facility] MCHC 34.6 32.0 - 37.0 g/dL LAB HEMETOLOGY METHOD 01/06/2025 4:[facility] RDW 13.0 11.0 - 15.0 % LAB HEMETOLOGY METHOD 01/06/2025 4:59 PM [facility] Platelets 254 130 - 400 K/mcL LAB HEMETOLOGY METHOD 01/06/2025 4:59 [facility] MPV 9.5 7.0 - 11.0 FL LAB HEMETOLOGY METHOD 01/06/2025 4:59 [facility] NRBC 0.0 <1.0 % LAB HEMETOLOGY METHOD 01/06/2025 4:59 PM EDT [facility] NRBC Absolute 0.00 <0.10 K/mcL LAB HEMETOLOGY METHOD 01/06/2025 4:59 PM EDT [facility] Neutrophils Relative 70.1 % LAB HEMETOLOGY METHOD 01/06/2025 4:59 PM [facility] Lymphocytes Relative 18.9 % LAB HEMETOLOGY METHOD 01/06/2025 4:59 PM [facility] Monocytes Relative 8.1 % LAB HEMETOLOGY METHOD 01/06/2025 4:59 PM EDT [facility] Eosinophils Relative 1.3 % LAB HEMETOLOGY METHOD 01/06/2025 4:59 PM EDT [facility] Basophils Relative 0.8 % LAB HEMETOLOGY METHOD 01/06/2025 4:59 PM [facility] Immature Granulocytes Relative 0.8 % LAB HEMETOLOGY METHOD 01/06/2025 4:59 PM EDT [facility] Neutrophils Absolute 5.98 1.50 - 7.00 K/mcL LAB HEMETOLOGY METHOD 01/06/2025 4:59 PM EDT [facility] Lymphocytes Absolute 1.61 1.00 - 5.00 K/mcL LAB HEMETOLOGY METHOD 01/06/2025 4:59 [facility] Monocytes Absolute 0.69 0.20 - 1.00 K/mcL LAB HEMETOLOGY METHOD 01/06/2025 4:59 PM EDT [facility] Eosinophils Absolute 0.11 0.00 - 0.50 K/mcL LAB HEMETOLOGY METHOD 01/06/2025 4:59 PM EDT [facility] Basophils Absolute 0.07 0.00 - 0.20 K/mcL LAB HEMETOLOGY METHOD 01/06/2025 4:59 PM [facility] Immature Granulocytes Absolute 0.07(H) 0.00 - 0.03 K/mcL LAB HEMETOLOGY METHOD 01/06/2025 4:59 PM EDT [facility] Blood Venous blood specimen / Unknown Venipuncture / Unknown 01/06/2025 4:31 PM EDT 01/06/2025 4:51 PM EDT us Xavier Powell DO LAB BLOOD ORDERABLES Final Result [facility] [address] [place] [address], * Comprehensive metabolic panel (01/06/2025 4:31 PM EDT) Sodium 138 133 - 145 mmol/L LAB CHEMISTRY METHOD 01/06/2025 5:20 PM [facility] Potassium 5.0 3.5 - 5.5 mmol/L LAB CHEMISTRY METHOD 01/06/2025 5:20 PM [facility] Chloride 107 96 - 110 mmol/L LAB CHEMISTRY METHOD 01/06/2025 5:20 PM [facility] CO2 27 21 - 32 mmol/L LAB CHEMISTRY METHOD 01/06/2025 5:20 PM [facility] Anion Gap 4 3 - 11 LAB CHEMISTRY METHOD 01/06/2025 5:20 PM [facility] Glucose 93 70 - 100 mg/dL LAB CHEMISTRY METHOD 01/06/2025 5:20 PM [facility] BUN 19 5 - 25 mg/dL LAB CHEMISTRY METHOD 01/06/2025 5:20 PM [facility] Creatinine 1.11 0.70 - 1.30 mg/dL LAB CHEMISTRY METHOD 01/06/2025 5:20 PM [facility] eGFR 74 >=60 mL/min/1. 73m2 LAB CHEMISTRY METHOD 01/06/2025 5:20 PM [facility] Comment:Calculation based on the Chronic Kidney Disease Epidemiology Collaboration (CKD-EPI) equation refit without adjustment for race. BUN/Creatinine Ratio 17.1 LAB CHEMISTRY METHOD 01/06/2025 5:20 PM [facility] Calcium 9.5 8.5 - 10.5 mg/dL LAB CHEMISTRY METHOD 01/06/2025 5:20 PM [facility] AST (SGOT) 14 10 - 42 unit/L LAB CHEMISTRY METHOD 01/06/2025 5:20 PM [facility] ALT (SGPT) 23 10 - 60 unit/L LAB CHEMISTRY METHOD 01/06/2025 5:20 PM EDT [facility] Alkaline Phosphatase 92 42 - 121 unit/L LAB CHEMISTRY METHOD 01/06/2025 5:20 PM EDT [facility] Total Protein 7.3 6.0 - 8.0 g/dL LAB CHEMISTRY METHOD 01/06/2025 5:20 PM EDT [facility] Albumin 4.1 3.2 - 5.0 g/dL LAB CHEMISTRY METHOD 01/06/2025 5:20 PM EDT [facility] Total Bilirubin 0.6 0.0 - 1.4 mg/dL LAB CHEMISTRY METHOD 01/06/2025 5:20 PM EDT [facility] Blood Venous blood specimen / Unknown Venipuncture / Unknown 01/06/2025 4:31 PM EDT 01/06/2025 4:51 PM EDT Xavier Powell DO LAB BLOOD ORDERABLES Final Result [facility] [address] [place] [address], [place] [phone] * ECG 12 lead (01/06/2025 4:27 PM EDT) Ventricular Rate ECG 72 BPM GEMUSE Atrial Rate 72 BPM GEMUSE P-R Interval 158 ms GEMUSE QRS Duration 96 ms GEMUSE Q-T Interval 368 ms GEMUSE QTc 402 ms GEMUSE P Wave Taylor 26 degrees GEMUSE R Taylor -13 degrees GEMUSE T Taylor 20 degrees GEMUSE ECG Interpretation Sinus rhythm with marked sinus arrhythmia Minimal voltage criteria for LVH, may be normal variant ( R in aVL ) Borderline ECG No previous ECGs available Confirmed by AXEL SERRATO ([id number]) on 01/06/2025 8:54:56 PM GEMUSE 01/06/2025 4:27 PM EDT 01/06/2025 8:54 PM EDT us Xavier Santoyohon DO ECG ORDERABLES Final Resul t GEMUSE * Colonoscopy (12/22/2023) Pathologist [facility] Colonoscopy Normal, Abstracted Anatomical Region Laterality Modality Other Historical Provider HEALTH MAINTENANCE Final Result * (ABNORMAL) Lipid panel (12/15/2023) [facility] LDL/HDL Ratio 4 0 - 4 Triglycerides 84 0 - 150 mg/dL Cholesterol 227(A) 0 - 200 mg/dL HDL 64 >=40 mg/dL LDL Cholesterol 147(A) 0 - 100 mg/dL Blood Venous blood specimen / Unknown Historical Provider LAB BLOOD ORDERABLES Linda l Result * Hepatitis C Screening (09/24/2017) [facility] Hepatitis C Screening Abstracted Historical Provider HEALTH MAINTENANCE Final Result from Last 3 Months or Most Recently Relevant to Health Maintenance Insurance [facility] MEDIC[facility] Care Teams Supervisor [employer] Relationship Specialty Start Date End Date Jazzmine Waters MD [address] [place] [id number] PCP - General Internal Medicine 10/21/13
== END 2025-03-14 09:59 | disposition home or self-care (01) ==
LOC: HO.HNS 09:39
PROVIDERS: PCP Internal Medicine; Visit Provider Physician Assistant
DX: M48.061 Spinal stenosis, lumbar region without neurogenic claudication (principal)
CPT/HCPCS: 99024

== ENCOUNTER 2025-04-27 13:32 | Outpatient (AMB) | payer OTHER, MEDICARE, SELFPAY ==
--- NOTE | 2025-04-27 13:43 | HO.SPINEOV ---
Intake Visit Reasons: 2nd post op Intake Note: Mr. Milan is here today for his 2nd post op. Pharmacoepidemiologist Required: No Allergies No Known Allergies Allergy (Verified 03/14/25 09:43) Assessment & Plan Assessment & Plan (1) Lumbar stenosis: Code(s): M48.061 - Spinal stenosis, lumbar region without neurogenic claudication Category: Medical Plan Mr. Milan is 2 months out from his right L4-5 decompression. The pain in his right leg is gone. He is back to most activities. He was asking about lifting restrictions and I told him at this point he has none. I gave him a note to go back to work. He will come back and see us on an as-needed basis. Norbert Patel MD, PhD [facility] Coding Level of Care Code Global (96082) Diagnoses Lumbar stenosis M48.061
--- OUTSIDE RECORDS SUMMARY | 2025-04-27 15:43 | XMS_ITS | Clinical Summary ---
Author Organization [facility] [address] [facility] Address [address] [facility] [place] [address] Phone Care Team Providers Care Cigarette Package Examiner Name Role Phone Jazzmine Waters MD Primary Care Provider [phone] Allergies No known active allergies Medications triamcinolone (KENALOG) 0.1 % cream Apply BID 4 Active hydroCHLOROthia zide (HYDRODIURIL) 25 mg tablet Take 1 tablet (25 mg total) by mouth 1 (one) time each day. 90 each 5 Active lisinopriL (PRINIVIL,ZESTR IL) 20 mg tablet TAKE 1 TABLET (20 MG TOTAL) BY MOUTH ONE TIME EACH DAY 90 tablet 1 5 Active amLODIPine (NORVASC) 2.5 mg tablet Take 1 tablet (2.5 mg total) by mouth 1 (one) time each day. 30 each 5 5 09/27/19 26 Active furosemide (LASIX) 20 mg tablet Take 1 tablet (20 mg total) by mouth 2 (two) times a day for 3 days. 6 each 5 03/31/20 25 Discontinu ed(Prescri delphine Discontinu ed) amLODIPine (NORVASC) 2.5 mg tablet Take 1 tablet (2.5 mg total) by mouth 1 (one) time each day. 30 each 5 5 03/31/20 25 Discontinu ed(Reorder ) Active Problems Problem Noted Date Diagnosed Date Renal insufficiency 04/21/2025 Spinal stenosis at L4-L5 level 02/28/2025 Overview (02/28/2025): Status post right L4-5 laminotomy, by Dr. Souleymane Patel February 23, 2025 Ventral hernia without obstruction or gangrene 0 02/28/2023 Obesity (BMI 30-39.9) 08/13/2018 Positive hepatitis C antibody test 09/23/2017 Overview (05/25/2024): Negative viral load Erectile dysfunction 09/15/2017 History of cocaine abuse ([facility] V24, [facility] V 28) 09/15/2017 Hyperlipidemia 06/30/2015 Hypertension 09/16/2012 Encounters Date Type Department Care Team Description 03/31/2025 3:45 PM EDT Office Visit Adult [address] [phone] Jazzmine Waters MD Sinus arrhythmia (Primary Dx); Primary hypertension; Obesity (BMI 30-39.9); Renal insufficiency 02/28/2025 11:30 AM EDT Office Visit [address] [phone] Jazzmine Waters MD Obesity (BMI 30-39.9) (Primary Dx); Other hyperlipidemia; Primary hypertension; Spinal stenosis at L4-L5 level; History of cocaine abuse ([facility] V24, [facility] V28); Skin cyst from Last 3 Months Immunizations Name Administration [...] Sign Reading Time Taken Comments Blood Pressure 123/76 03/31/2025 3:44 PM EDT Pulse 86 03/31/2025 3:44 PM EDT Temperature 36.7 C (98.1 F) 03/31/2025 3:44 PM EDT Respiratory Rate 18 03/31/2025 3:44 PM EDT Oxygen Saturation 96% 01/11/2025 10:11 AM EDT Inhaled Oxygen Concentration - - Weight 114 kg (251 lb) 03/31/2025 3:44 PM EDT Height 170.2 cm (5' 7 ) 02/28/2025 11:15 AM EDT Body Mass Index 39.31 02/28/2025 11:15 AM EDT Plan of Treatment Upcoming Encounters Date Type Department Care Team (Late st Contact Info) Description 07/04/2025 10:00 AM EST Office Visit Adult Medicine [address] [phone] Jazzmine Waters MD [address] [place] [phone] Health Maintenance Due Date Last Done Comments Hepatitis A Vaccines (1 of 2 - Risk 2-dose series) 12/07/1978 Pneumococcal Vaccine: 50+ Years (1 of 1 - PCV) 12/07/2009 Zoster Vaccines (1 of 2) 12/07/2009 Abdominal Aortic Aneurysm (AAA) Screen 09/24/2023 Medicare Annual Wellness Visit 09/24/2023 Social Influencers of Health Screening 09/24/2023 Depression Screening 08/25/2024 Falls Risk Assessment 12/07/2024 COVID-19 Vaccine ( season) 2025 08/04/2022, 07/30/2021, 12/10/2020, Additional history exists Influenza Vaccine (#1) 2025 08/05/2023 Hypertension/CHF/CAD Annual BMP Blood Test 04/08/2026 04/08/2025, 03/23/2025, 01/06/2025, Additional history exists Cholesterol Screening (Lipid Panel) 06/15/2029 06/15/2024, 12/15/2023 [...] Procedure Name Priority Date/Time Associated Diagnosis Comments BASIC METABOLIC PANEL Routine 04/08/2025 8:35 AM EDT Renal insufficiency BASIC METABOLIC PANEL Routine 03/23/2025 8:29 AM EDT Primary hypertension EXTERNAL XRAY REPORT 02/23/2025 EXTERNAL XRAY REPORT 02/23/2025 COLONOSCOPY Routine 12/22/2023 LIPID PANEL Routine 12/15/2023 HEPATITIS C SCREENING Routine 09/24/2017 from Last 3 Months or Most Recently Relevant to Health Maintenance Results * (ABNORMAL) Basic metabolic panel (04/08/2025 8:35 AM EDT) Only the most recent of2 resultswithin the time period is included. Sodium 139 133 - 145 mmol/L LAB CHEMISTRY METHOD 04/08/2025 10:56 AM [facility] Potassium 4.7 3.5 - 5.5 mmol/L LAB CHEMISTRY METHOD 04/08/2025 10:56 AM [facility] Chloride 108 96 - 110 mmol/L LAB CHEMISTRY METHOD 04/08/2025 10:56 AM [facility] CO2 27 21 - 32 mmol/L LAB CHEMISTRY METHOD 04/08/2025 10:56 AM [facility] Anion Gap 4 3 - 11 LAB CHEMISTRY METHOD 04/08/2025 10:56 AM [facility] Glucose 100 70 - 100 mg/dL LAB CHEMISTRY METHOD 04/08/2025 10:56 AM [facility] BUN 41(H) 5 - 25 mg/dL LAB CHEMISTRY METHOD 04/08/2025 10:56 AM [facility] Creatinine 1.44(H) 0.70 - 1.30 mg/dL LAB CHEMISTRY METHOD 04/08/2025 10:56 AM [facility] eGFR 54(L) >=60 mL/min/1. 73m2 LAB CHEMISTRY METHOD 04/08/2025 10:56 AM [facility] Comment:Calculation based on the Chronic Kidney Disease Epidemiology Collaboration (CKD-EPI) equation refit without adjustment for race. BUN/Creatinine Ratio 28.5 LAB CHEMISTRY METHOD 04/08/2025 10:56 AM [facility] Calcium 8.5 8.5 - 10.5 mg/dL LAB CHEMISTRY METHOD 04/08/2025 10:56 AM [facility] Blood Venous blood specimen / Unknown Venipuncture / Unknown 04/08/2025 8:35 AM EDT 04/08/2025 8:35 AM EDT Jazzmine Waters MD LAB BLOOD ORDERABLES Final Resul t [facility] [address] [place] [address], * External Xray Report (02/23/2025) Only the most recent of2 resultswithin the time period is included. Anatomical Region Laterality Modality Radiographic Blanca ging Provider [facility] IMG XR PROCEDURES Final Result * Colonoscopy (12/22/2023) Pathologist [facility] Colonoscopy Normal, Abstracted Anatomical Region Laterality Modality Other Nany Lynne MD HEALTH MAINTENANCE Final Result * (ABNORMAL) Lipid panel (12/15/2023) [facility] LDL/HDL Ratio 4 0 - 4 Triglycerides 84 0 - 150 mg/dL Cholesterol 227(A) 0 - 200 mg/dL HDL 64 >=40 mg/dL LDL Cholesterol 147(A) 0 - 100 mg/dL Blood Venous blood specimen / Unknown Nany Lynne MD LAB BLOOD ORDERABLES Linda l Result * Hepatitis C Screening (09/24/2017) Pathologist [facility] Hepatitis C Screening Abstracted Historical [facility] MAINTENANCE Final Result from Last 3 Months or Most Recently Relevant to Health Maintenance Insurance [facility] MEDIC[facility] Care Teams Cigarette Package Examiner Relationship Specialty Start Date End Date Jazzmine Waters MD [address] [place] [address] PCP - General Internal Medicine 10/21/13
== END 2025-04-27 14:31 | disposition home or self-care (01) ==
LOC: HO.HNS 13:32
PROVIDERS: PCP Internal Medicine; Visit Provider Physician Assistant
DX: M48.061 Spinal stenosis, lumbar region without neurogenic claudication (principal)
CPT/HCPCS: 99024